=== PATIENT | male | born 1975 | race Caucasian/White ===

== ENCOUNTER 2018-07-22 06:45 | Day surgery (SDC) | payer OTHER ==
[2018-07-21 16:45] LABS: BASOPHILS 0.2 % (0-2); HEMATOCRIT 46.4 % (42.0-54.0); HEMOGLOBIN 15.8 g/dL (13.5-17.5); IMMATURE GRANULOCYTES 0.2 % (0-5); LYMPHOCYTES 21.9 % (15-50); MCH 30.6 pg (26.0-34.0); MCHC 34.1 g/dL (31.0-37.0); MCV 89.7 fL (80.0-100.0); MEAN PLATELET VOLUME 9.9 fL (7.4-10.4); MONOCYTES 7.5 % (2-11); NEUTROPHILS 66.2 % (40-80); PLATELET COUNT 238 10x3/uL (130-400); RBC 5.17 10x6/uL (4.20-6.10); RDW 12.8 % (11.5-14.5); WBC 8.9 10x3/uL (4.8-10.8)
[2018-07-21 16:48] LABS: CALC OSMOLALITY 274 mosm/kg (275-300); CALCIUM 8.5 mg/dL (8.5-10.1); CARBON DIOXIDE 23.9 mmol/L (21.0-32.0); CHLORIDE - SERUM 104 mmol/L (98-107); CREATININE - SERUM 0.9 mg/dL (0.6-1.3); GLUCOSE 87 mg/dL (74-106); POTASSIUM - SERUM 4.4 mmol/L (3.5-5.1); SODIUM 138 mmol/L (136-145); UREA NITROGEN 13 mg/dL (7-18); eGFR NON AFRICAN AMERICAN > 90 mL/min (90-120)
[~2018-07-22] VITALS: Ht 188 cm; Wt 124.7 kg
--- NOTE | ~2018-07-22 | OP ---
PATIENT NAME: SABA CARROLL MEDICAL RECORD: [id number] :71 LOCATION[facility] ADMISSION DATE: SURGEON: DANIEL BUTCHER MD DATE OF OPERATION: 07/22/2018 PREOPERATIVE DIAGNOSES: 1. Gallstones. 2. Peptic ulcer disease. 3. Asthma. POSTOPERATIVE DIAGNOSES: 1. Acute cholecystitis. 2. Peptic ulcer disease. 3. Asthma. PROCEDURE: Laparoscopic cholecystectomy. SURGEON: Daniel Butcher MD REPORT OF PROCEDURE: The patient's abdomen was prepped and draped in sterile fashion. A cutdown was made on the superior aspect of the umbilicus, 0 Vicryls were placed in the fascia bilaterally and the fascia was incised with 15-blade. I then bluntly entered the peritoneal cavity and placed a 12-mm Camilla port. Under direct visualization, a 5 mm trocar was placed in the epigastrium and 2 more 5-mm trocars were placed in the right subcostal region. The gallbladder was noted to be markedly inflamed with some fatty adhesions present around it. These were teased down carefully with blunt dissection. The gallbladder wall was thickened and the gallbladder was quite distended. We used a needle to access the gallbladder and remove some of the fluid. There was bilious return of fluid with some stones noted. This made the gallbladder much more easy to maneuver. We then dissected out the cystic artery and cystic duct and these were clipped proximally and distally and ligated in standard fashion. The gallbladder was then taken off the liver bed using electrocautery and placed into an Endo Catch bag. Any bleeding from the liver bed was then treated with electrocautery. We irrigated out the right upper quadrant and assured there was no sign of any bleeding or bile leakage. At this point, the ports and insufflation were then removed and the gallbladder was taken out through the umbilicus. The umbilical fascia was closed with interrupted 0 Vicryls times 3. The wounds were infused with total of 10 mL of 0.25% Marcaine with epinephrine and closed with subcutaneous 5-0 Monocryl. We then dressed the wounds appropriately. COMPLICATIONS: None. CONDITION: Stable. ANESTHESIA: General endotracheal and local. BLOOD LOSS: 50 mL. 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
[~2018-07-22 06:45] MED LIST: CLARITIN 10 MG10 MG PO; OMEPRAZOLE20 M1 PO
[2018-07-22 07:55] VITALS: BP 123/84; Ht 188 cm; Wt 124.7 kg
[2018-07-22] MEDS ORDERED: HYDROCODONE-APA1 TAB PO (10:36)
== END 2018-07-22 12:15 | disposition home or self-care (01) ==
LOC: D.OPS 06:45
PROVIDERS: Surgery
DX: K80.00 Calculus of gallbladder with acute cholecystitis without obstruction (principal); K27.9 Peptic ulcer, site unspecified, unspecified as acute or chronic, without hemorrhage or perforation; J45.909 Unspecified asthma, uncomplicated; Z01.812 Encounter for preprocedural laboratory examination